=== PATIENT | male | born 1965 | race Caucasian/White ===

== ENCOUNTER 2020-01-31 06:44 | Day surgery (SDC) | payer BC, OTHER ==
[2020-01-31] MEDS ORDERED: Lidocaine 1% PF 2 ML SDV INJECT ONE (06:45)
[2020-01-31] MEDS ORDERED: Lactated Ringers 1,000 ML IV SCH (06:45)
[2020-01-31] MEDS ORDERED: Sodium Chloride 0.9% 10 ML Syringe FLUSH PRN (06:45)
[2020-01-31] MEDS ORDERED: Propofol 200 MG/20 ML SDV IV ONE (06:45)
--- NOTE | 2020-01-31 08:41 | PCM.OPNOTE ---
- General Post-Op/Procedure Note Date of Surgery/Procedure: 01/31/20 Operative Procedure(s): c scope Findings: descending colon polyp Pre Op Diagnosis: hx of colon polyp Post-Op Diagnosis: descending colon polyp Primary Surgeon: Ted Valdes Anesthesia Provider: Jax Negro Pathology: colon polyp Complications: None Condition: Good Free Text/Narrative:: see dictation
[2020-01-31 09:58] VITALS: BP 113/63; PULSE 73
--- NOTE | 2020-01-31 13:37 | OR ---
DATE OF OPERATION: 01/31/2020 SURGEON: Ted Valdes MD PROCEDURE PERFORMED: Colonoscopy with cold forceps biopsy. PREOPERATIVE DIAGNOSIS: Personal history of colon polyps. POSTOPERATIVE DIAGNOSIS: Polyp of the descending colon. INDICATIONS FOR PROCEDURE: This is a 54-year-old white male with a known history of adenomatous polyps. He is due for his followup colonoscopy. He was offered and accepted same. DESCRIPTION OF OPERATION: After an excellent IV sedation was administered, digital rectal exam was performed. No marked abnormality was noted. Flexible colonoscope was inserted and advanced to the cecum. Prep was excellent. Following findings were noted. Ascending colon, unremarkable. Transverse colon, unremarkable. Descending colon, small polyp, biopsied with cold biopsy forceps and sent for permanent. Sigmoid and rectum, unremarkable. The patient tolerated the procedure well. Results will be sent by letter. /[id number] /MODL
== END 2020-01-31 10:36 | disposition home or self-care (01) ==
LOC: FB.SDS 06:44
PROVIDERS: ATTEND Surgery
DX: Z12.11 Encounter for screening for malignant neoplasm of colon (principal); K63.5 Polyp of colon; Z86.018 Personal history of other benign neoplasm; Z98.890 Other specified postprocedural states
CPT/HCPCS: 45380; 88305; J2001; J2704; J7120